=== PATIENT | male | born 1945 | race Caucasian/White ===

== ENCOUNTER 2019-10-08 09:30 | Emergency (ER) | payer OTHER, MEDICARE ==
[~2019-10-08] VITALS: Ht 185.4 cm; Wt 220.0 kg
[2019-10-08] MEDS ORDERED: D3 +TAB PO (09:57)
[2019-10-08] MEDS ORDERED: LISI-538 PO (09:57)
[2019-10-08] MEDS ORDERED: BUPR15TASR PO (09:57)
[2019-10-08] MEDS ORDERED: METF500T13 PO (09:57)
[2019-10-08] MEDS ORDERED: ACID1TAB PO (09:57)
[2019-10-08] MEDS ORDERED: MUPI2OI TOP (09:57)
[2019-10-08] MEDS ORDERED: GLIP10TA PO (09:57)
--- NOTE | 2019-10-08 10:19 | REP ---
CHEST, SINGLE VIEW: No comparison. Single view of the chest is performed. There appears to be linear fibroatelectatic change in each lung base. There is a vague density in the right lung base just below the level of the hilum, which could represent a nodule or small infiltrate. Heart is not significantly enlarged. There is calcification and tortuosity of thoracic aorta. Mediastinal silhouette is otherwise unremarkable. Electronically Signed by Joe Felipe MD 10/12/2019 03:21 P
[2019-10-08 10:31] LABS: HEMATOCRIT 41.7 % (42.0-52.0); HEMOGLOBIN 14.4 g/dl (13.5-17.5); MEAN CORPUSCULAR HEMOGLOBIN 31.8 pg (27.0-33.0); MEAN CORPUSCULAR HGB CONC 34.5 g/dl (32.0-36.5); MEAN CORPUSCULAR VOLUME 92.1 fl (80.0-96.0); PLATELET COUNT, AUTOMATED 305 10^3/uL (150-450); RED BLOOD COUNT 4.53 10^6/uL (4.30-6.10)
[2019-10-08 10:32] LABS: WHITE BLOOD COUNT 8.6 10^3/uL (4.0-10.0)
[2019-10-08 10:55] LABS: ATYPICAL LYMPH 4 % (0-5); BASOPHILS 1 % (0-1); LYMPHOCYTES 61 % (16-44); MONOCYTES 1 % (0-5); NEUTROPHILS 33 % (28-66)
[2019-10-08 10:56] LABS: PLATELET ESTIMATE NORMAL (NORMAL)
[2019-10-08 10:58] LABS: INFLUENZA A AMPLIFICATION NEGATIVE (NEGATIVE); INFLUENZA B AMPLIFICATION NEGATIVE (NEGATIVE)
[2019-10-08 11:04] LABS: BLOOD UREA NITROGEN 13 MG/DL (7-18); CALCIUM LEVEL 9.5 MG/DL (8.8-10.2); CARBON DIOXIDE LEVEL 29 MEQ/L (21-32); CHLORIDE LEVEL 99 MEQ/L (98-107); CK-MB VALUE MASS 1.1 NG/ML (<3.6); CPK CREATINE PHOSPHOKINASE 37 U/L (39-308); CREATININE FOR GFR 0.99 MG/DL (0.70-1.30); GLOMERULAR FILTRATION RATE > 60.0 (>42); GLUCOSE, FASTING 247 MG/DL (70-100); MB/CK RELATIVE INDEX 2.97 (< OR =4); POTASSIUM SERUM 4.2 MEQ/L (3.5-5.1); SODIUM LEVEL 134 MEQ/L (136-145); TROPONIN I < 0.02 NG/ML (< 0.10)
--- NOTE | 2019-10-08 11:18 | REP ---
CT STUDY OF THE CHEST WITH OUT IV CONTRAST: HISTORY: Right lung nodule versus infiltrate. Comparison is made with today's chest x-ray. FINDINGS: There are multiple healing and incompletely united right posterior rib fractures. Hypertrophied callus relating to one of these nonunited right posterior rib fractures is felt to account for nodular opacity seen on today's radiograph. There is no pulmonary nodule or mass lesion. There is linear fibrosis in the right middle lobe and to a lesser extent right lower lobe. There is no evidence of pleural or pericardial effusion. There are scattered bullae and there are emphysematous changes in the upper lobes bilaterally. Normal adrenal glands are seen in the visualized upper abdominal structures show no significant abnormality. There are two tiny cysts visible in the liver. No hilar or mediastinal mass or adenopathy seen. No acute bony abnormality is observed. IMPRESSION: Multiple nonunited right posterolateral rib fractures one of which accounts for the nodular opacity seen radiographically. Evidence of COPD. Right basilar linear fibrosis. No infiltrate seen. Electronically Signed by Girish Ribeiro MD 10/08/2019 06:39 P
[2019-10-08 13:06] VITALS: BP 123/74
--- NOTE | 2019-10-09 18:29 | ECGEPIP ---
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
== END 2019-10-08 13:08 | disposition home or self-care (01) ==
LOC: M ED 09:30
DX: J44.9 Chronic obstructive pulmonary disease, unspecified (principal); S22.41XA Multiple fractures of ribs, right side, initial encounter for closed fracture; R00.0 Tachycardia, unspecified; I45.19 Other right bundle-branch block; I44.4 Left anterior fascicular block; E11.9 Type 2 diabetes mellitus without complications; I10 Essential (primary) hypertension; F32.9 Major depressive disorder, single episode, unspecified; F17.200 Nicotine dependence, unspecified, uncomplicated; X58.XXXA Exposure to other specified factors, initial encounter; Y92.9 Unspecified place or not applicable; Y93.9 Activity, unspecified; Y99.9 Unspecified external cause status; Z79.84 Long term (current) use of oral hypoglycemic drugs; Z79.899 Other long term (current) drug therapy; Z88.0 Allergy status to penicillin; Z88.5 Allergy status to narcotic agent

== ENCOUNTER → 2022-12-05 | Outpatient (CLI) | payer MEDICARE, OTHER ==
[~2022-12-05] MED LIST: ACID1TAB PO; BUPR15TASR PO; D3 +TAB PO; GLIP10TA PO; LISI20TA33 PO; METF500T13 PO; MUPI2OI TOP
== END ==
LOC: M RAD 10:47
PROVIDERS: ATTEND Nurse Practitioner Family
DX: Z12.2 Encounter for screening for malignant neoplasm of respiratory organs (principal); F17.218 Nicotine dependence, cigarettes, with other nicotine-induced disorders; J43.9 Emphysema, unspecified; I70.0 Atherosclerosis of aorta; J47.9 Bronchiectasis, uncomplicated; I25.10 Atherosclerotic heart disease of native coronary artery without angina pectoris; Z87.81 Personal history of (healed) traumatic fracture

== ENCOUNTER 2024-02-02 11:38 | Emergency (ER) | payer OTHER, MEDICARE ==
[~2024-02-02] VITALS: Ht 182.9 cm; Wt 99.8 kg
[2024-02-02 12:27] LABS: HEMATOCRIT 45.2 % (42.0-52.0); HEMOGLOBIN 15.4 g/dl (13.5-17.5); MEAN CORPUSCULAR HEMOGLOBIN 32.7 pg (27.0-33.0); MEAN CORPUSCULAR HGB CONC 34.1 g/dl (32.0-36.5); PLATELET COUNT, AUTOMATED 222 10^3/uL (150-450); RED BLOOD COUNT 4.71 10^6/uL (4.30-6.10); WHITE BLOOD COUNT 13.7 10^3/uL (4.0-10.0)
[2024-02-02 12:44] LABS: ALBUMIN 3.9 G/DL (3.2-5.2); ALKALINE PHOSPHATASE 101 U/L (46-116); ALT/SGPT 22 U/L (7.0-40); AST/SGOT 22 U/L (<34); BILIRUBIN,TOTAL 1.3 MG/DL (0.3-1.2); BLOOD UREA NITROGEN 19 MG/DL (9-23); CALCIUM LEVEL 9.6 MG/DL (8.3-10.6); CARBON DIOXIDE LEVEL 27 MMOL/L (20-31); CHLORIDE LEVEL 104 MMOL/L (98-107); CREATININE FOR GFR 0.76 MG/DL (0.70-1.30); GLOMERULAR FILTRATION RATE > 60.0 (>42); GLUCOSE, FASTING 138 MG/DL (74-106); POTASSIUM SERUM 4.4 MMOL/L (3.5-5.1); SODIUM LEVEL 138 MMOL/L (136-145); TOTAL PROTEIN 6.5 G/DL (5.7-8.2)
[2024-02-02 13:20] LABS: ATYPICAL LYMPH 14 % (0-5); LYMPHOCYTES 46 % (16-44); MONOCYTES 3 % (0-5); NEUTROPHILS 33 % (28-66)
[2024-02-02 13:21] LABS: PLATELET ESTIMATE NORMAL (NORMAL)
[2024-02-02] MEDS: ACETAMINOPHEN 500 MG TAB PO ONE (13:49)
[2024-02-02 15:37] VITALS: BP 126/91; TEMP 97.7; O2SAT 92
== END 2024-02-02 16:20 | disposition home or self-care (01) ==
LOC: M ED 11:38 → EDBD 11:38 → M ED 16:20
DX: S20.212A Contusion of left front wall of thorax, initial encounter (principal); S80.02XA Contusion of left knee, initial encounter; W19.XXXA Unspecified fall, initial encounter; Y92.9 Unspecified place or not applicable; Y93.9 Activity, unspecified; Y99.9 Unspecified external cause status; E11.9 Type 2 diabetes mellitus without complications; I25.10 Atherosclerotic heart disease of native coronary artery without angina pectoris; J44.9 Chronic obstructive pulmonary disease, unspecified; F17.200 Nicotine dependence, unspecified, uncomplicated; Z79.84 Long term (current) use of oral hypoglycemic drugs; Z79.899 Other long term (current) drug therapy; Z88.0 Allergy status to penicillin; Z88.5 Allergy status to narcotic agent

== ENCOUNTER 2025-06-03 17:10 | Observation (INO) | payer MEDICAID, MEDICARE, OTHER ==
[~2025-06-03] VITALS: Ht 182.9 cm; Wt 104.5 kg
[2025-06-03 17:54] LABS: BASO # 0.1 10^3/uL (0.0-0.2); BASO % 0.3 % (0.0-1.0); EOS # 0.1 10^3/uL (0.0-0.5); EOS % 0.3 % (0.0-3.0); LYMPH # 32.0 10^3/uL (1.5-5.0); LYMPH % 92.4 % (24.0-44.0); MONO # 0.7 10^3/uL (0.0-0.8); MONO % 1.9 % (2.0-8.0); NEUTROPHILS # 1.8 10^3/uL (1.5-8.5); NEUTROPHILS % 5.0 % (36.0-66.0); PLATELET COUNT, AUTOMATED 284 10^3/uL (150-450)
[2025-06-03] MEDS: NS 500 ML IV ONE (18:02)
[2025-06-03] MEDS: ACETAMINOPHEN *IV* 1,000 MG in IV 1 EA IV ONE (18:02)
[2025-06-03] MEDS ORDERED: ISOVUE-370 76% 100 ML VIAL As Ordered ONE (18:07)
[2025-06-03 18:21] LABS: ALT/SGPT 25.0 U/L (7.0-40); AST/SGOT 15.0 U/L (<34); CALCIUM LEVEL 9.0 MG/DL (8.3-10.6); CARBON DIOXIDE LEVEL 29.0 MMOL/L (20-31); CHLORIDE LEVEL 104.0 MMOL/L (98-107); CREATININE FOR GFR 0.86 MG/DL (0.70-1.30); GLOMERULAR FILTRATION RATE 87.5 (>35); POTASSIUM SERUM 4.3 MMOL/L (3.5-5.1); SODIUM LEVEL 142.0 MMOL/L (136-145)
[2025-06-03] MEDS ORDERED: LIDOCAINE 2% 5 ML JELLY UROJET TOP ONE (18:30)
[2025-06-03 18:48] LABS: KETONE, URINE AUTO RFX NEGATIVE (NEGATIVE); LEUKOCYTE ESTERASE UR AUTO RFX NEGATIVE (NEGATIVE); NITRITE, URINE AUTO RFX NEGATIVE (NEGATIVE); RBC, URINE AUTO RFX 1 /HPF (0-3); SQUAM EPITHELIAL CELL UR AURFX 0 /HPF (0-6); WBC, URINE AUTO RFX 0 /HPF (0-3)
[2025-06-03] MEDS ORDERED: ACET-907 PO (19:45)
[2025-06-03] MEDS ORDERED: HOME MED LIST COMPLETE! XX SCH (19:45)
[2025-06-03] MEDS ORDERED: MED REC COMMENT (19:45)
[2025-06-03] MEDS ORDERED: DOCU100C16 PO (19:45)
[2025-06-03] MEDS ORDERED: ZANU80CA PO (19:45)
[2025-06-03] MEDS: NS (Normal Saline) 0.9% 1,000 ML IV ONE (20:15)
[2025-06-03] MEDS: MEROPENEM 2 GM in SODIUM CHLORIDE 0.9% INJ 100 ML IV ONE (20:15)
[2025-06-04] MEDS: MOM 30 ML SUSPENSION UDC PO SCH (03:16)
[2025-06-04] MEDS: SENNOSIDES/DOCUSATE SODIUM 8.6 MG/50MG TAB PO SCH (03:16)
[2025-06-04 06:35] LABS: PLATELET COUNT, AUTOMATED 232 10^3/uL (150-450)
[2025-06-04 07:03] LABS: CALCIUM LEVEL 8.8 MG/DL (8.3-10.6); CARBON DIOXIDE LEVEL 28 MMOL/L (20-31); CHLORIDE LEVEL 106 MMOL/L (98-107); CREATININE FOR GFR 0.57 MG/DL (0.70-1.30); GLOMERULAR FILTRATION RATE > 90.0 (>35); MAGNESIUM LEVEL 1.8 MG/DL (1.8-2.4); POTASSIUM SERUM 4.3 MMOL/L (3.5-5.1); SODIUM LEVEL 143 MMOL/L (136-145)
[2025-06-04] MEDS: MIRALAX *UNIT DOSE* 17 GM PACKET PO SCH (09:00)
[2025-06-04] MEDS: ENOXAPARIN 40 MG/0.4 ML SYRINGE (J1650 PER 10MG) SC SCH (10:15)
[2025-06-04] MEDS: BISACODYL 10 MG SUPP PR SCH (10:15)
[2025-06-04 14:35] VITALS: BP 121/64; TEMP 97.9; O2SAT 95
[2025-06-04] MEDS ORDERED: ATOR1TAB19 PO (14:53)
[2025-06-04] MEDS ORDERED: PANT20TA6 PO (14:53)
[2025-06-04] MEDS ORDERED: LORA-1041 PO (14:53)
[2025-06-04] MEDS ORDERED: SYNJ1TAB15 PO (14:54)
[2025-06-04] MEDS ORDERED: FLON1SPR NARES (14:56)
[2025-06-04] MEDS ORDERED: DULC10SU2 PR (15:02)
[2025-06-04] MEDS ORDERED: BISA10EN PR (15:02)
[2025-06-04] MEDS ORDERED: ACET650S3 PR (15:02)
[2025-06-04] MEDS ORDERED: DICL20GE TOP (15:05)
[2025-06-04] MEDS ORDERED: MILKSUS3 PO (15:05)
[2025-06-04] MEDS: ACETAMINOPHEN 325 MG TAB PO PRN (17:34)
[2025-06-04 21:06] VITALS: BP 135/71; TEMP 98.6; O2SAT 97
[2025-06-05 03:34] VITALS: BP 103/62; TEMP 98.4; O2SAT 90
[2025-06-05 06:23] LABS: PLATELET COUNT, AUTOMATED 248 10^3/uL (150-450)
[2025-06-05 06:47] LABS: CALCIUM LEVEL 8.6 MG/DL (8.3-10.6); CARBON DIOXIDE LEVEL 28 MMOL/L (20-31); CHLORIDE LEVEL 105 MMOL/L (98-107); CREATININE FOR GFR 0.50 MG/DL (0.70-1.30); GLOMERULAR FILTRATION RATE > 90.0 (>35); MAGNESIUM LEVEL 1.8 MG/DL (1.8-2.4); POTASSIUM SERUM 4.1 MMOL/L (3.5-5.1); SODIUM LEVEL 141 MMOL/L (136-145)
[2025-06-05 07:11] LABS: ATYPICAL LYMPH 14 % (0-5); EOSINOPHILS 1 % (0-3); LYMPHOCYTES 80 % (16-44); MONOCYTES 2 % (0-5); NEUTROPHILS 2 % (28-66)
[2025-06-05 07:12] LABS: PLATELET ESTIMATE NORMAL (NORMAL)
[2025-06-05 12:00] VITALS: BP 117/71; TEMP 97.9; O2SAT 96
[2025-06-05] MEDS ORDERED: PREPARATION H OINTMENT (HEMORRHOID) TOP PRN (14:55)
[2025-06-05 20:00] VITALS: BP 116/63; TEMP 98.1; O2SAT 94
[2025-06-05] MEDS ORDERED: UNRESOLVED PATIENT OWN MED ORDER XX SCH (21:00)
[2025-06-06 04:00] VITALS: BP 103/56; TEMP 97.9; O2SAT 97
[2025-06-06 06:21] LABS: BASO # 0.1 10^3/uL (0.0-0.2); BASO % 0.2 % (0.0-1.0); EOS # 0.1 10^3/uL (0.0-0.5); EOS % 0.4 % (0.0-3.0); LYMPH # 23.6 10^3/uL (1.5-5.0); LYMPH % 93.7 % (24.0-44.0); MONO # 0.6 10^3/uL (0.0-0.8); MONO % 2.5 % (2.0-8.0); NEUTROPHILS % 3.2 % (36.0-66.0); PLATELET COUNT, AUTOMATED 241 10^3/uL (150-450)
[2025-06-06 06:22] LABS: NEUTROPHILS # 0.8 10^3/uL (1.5-8.5)
[2025-06-06 06:52] LABS: CALCIUM LEVEL 8.8 MG/DL (8.3-10.6); CARBON DIOXIDE LEVEL 28 MMOL/L (20-31); CHLORIDE LEVEL 104 MMOL/L (98-107); CREATININE FOR GFR 0.61 MG/DL (0.70-1.30); GLOMERULAR FILTRATION RATE > 90.0 (>35); MAGNESIUM LEVEL 1.8 MG/DL (1.8-2.4); POTASSIUM SERUM 4.1 MMOL/L (3.5-5.1); SODIUM LEVEL 140 MMOL/L (136-145)
[2025-06-06] MEDS: LACTULOSE 20 GM/30 ML SYRUP UDC PO ONE (09:23)
[2025-06-06 11:10] VITALS: BP 129/68; TEMP 97.9; O2SAT 96
[2025-06-06] MEDS ORDERED: PREPOI TOP (11:47)
[2025-06-06] MEDS ORDERED: MIRA33506 PO (11:47)
[2025-06-06] MEDS ORDERED: DOCU8.6T PO (11:47)
== END 2025-06-06 12:11 ==
LOC: M ED 17:10 → EDBD 17:10 → M ED INP 17:11 → M MSPAV 06-04 14:29
PROVIDERS: ADMIT Student in an Organized Health Care Education/Training Program; ATTEND Student in an Organized Health Care Education/Training Program
DX: K56.41 Fecal impaction (principal); R10.9 Unspecified abdominal pain; D72.829 Elevated white blood cell count, unspecified; D64.9 Anemia, unspecified; C91.10 Chronic lymphocytic leukemia of B-cell type not having achieved remission; Z79.899 Other long term (current) drug therapy; I10 Essential (primary) hypertension; J44.9 Chronic obstructive pulmonary disease, unspecified; Z85.46 Personal history of malignant neoplasm of prostate; R73.03 Prediabetes
CPT/HCPCS: 36415; 70450; 71045; 74018; 74177; 80047; 80048; 80076; 81001; 82150; 83605; 83690; 83735; 85025; 85027; 87040; 87426; 93005; 93041; 96361; 96365; 96372; 96375; 99285; G0378; J0131; J1650; J2183; Q9967

== ENCOUNTER → 2025-06-07 | Outpatient (REF) | payer OTHER ==
[~2025-06-07] MED LIST changes: +ACET-907 PO; +ACET650S3 PR; +ATOR1TAB19 PO; +BISA10EN PR; +DICL20GE TOP; +DOCU100C16 PO; +DOCU8.6T PO; +DULC10SU2 PR; +FLON1SPR NARES; +LORA-1041 PO; +MED REC COMMENT; +MILKSUS3 PO; +MIRA33506 PO; +PANT20TA6 PO; +PREPOI TOP; +SYNJ1TAB15 PO; +ZANU80CA PO
== END ==
LOC: M RAD 15:03 → EDSTATUS 06-08 14:36
PROVIDERS: ATTEND Family Medicine
DX: Z01.89 Encounter for other specified special examinations (principal)

== ENCOUNTER → 2025-06-07 | Outpatient (REF) | payer OTHER | LOC: SKLAB3 14:17 | PROVIDERS: ATTEND Family Medicine | DX: Z53.8 Procedure and treatment not carried out for other reasons (principal) ==

== ENCOUNTER → 2025-06-24 | Outpatient (REF) | payer SELFPAY ==
[2025-06-24 10:34] LABS: PLATELET COUNT, AUTOMATED 196 10^3/uL (150-450)
[2025-06-24 10:55] LABS: ALT/SGPT 13 U/L (7.0-40); AST/SGOT 11 U/L (<34); CALCIUM LEVEL 8.9 MG/DL (8.3-10.6); CARBON DIOXIDE LEVEL 29 MMOL/L (20-31); CHLORIDE LEVEL 103 MMOL/L (98-107); CREATININE FOR GFR 0.77 MG/DL (0.70-1.30); GLOMERULAR FILTRATION RATE > 90.0 (>35); POTASSIUM SERUM 4.5 MMOL/L (3.5-5.1); SODIUM LEVEL 140 MMOL/L (136-145)
== END ==
LOC: SKLAB3 09:37
PROVIDERS: ATTEND Family Medicine
DX: R63.5 Abnormal weight gain (principal); R41.0 Disorientation, unspecified

== ENCOUNTER → 2025-06-29 | Outpatient (REF) | payer SELFPAY ==
[~2025-06-29] MED LIST changes: -DOCU8.6T PO; +SENN-208 PO
== END ==
LOC: SKLAB3 14:38
PROVIDERS: ATTEND Family Medicine
DX: R19.12 Hyperactive bowel sounds (principal); M47.9 Spondylosis, unspecified; Z98.890 Other specified postprocedural states

== ENCOUNTER → 2025-07-21 | Outpatient (REF) | payer SELFPAY ==
[2025-07-21 10:01] LABS: ESTIMATED AVERAGE GLUCOSE 120.0 MG/DL (60-110)
== END ==
LOC: SKLAB3 06:49
PROVIDERS: ATTEND Family Medicine
DX: E11.9 Type 2 diabetes mellitus without complications (principal)